=== PATIENT | female | born 2000 | race Caucasian/White ===

== ENCOUNTER 2021-09-16 13:15 | Outpatient (CLI) | payer MEDICAID, SELFPAY ==
--- NOTE | 2021-09-16 13:23 | US_ITS ---
STUDY: FIRST TRIMESTER OBSTETRICAL ULTRASOUND REASON FOR EXAM: Female, 21 years old viability LMP: 07/25/2021. TECHNIQUE: Transvaginal TECHNICAL QUALITY: Adequate. PRIOR ULTRASOUND: None. FINDINGS: There is visualization of a single gestational sac in a normal intrauterine position. The mean sac diameter (MSD) measures 2.4 cm, indicating an estimated gestational age (EGA) of 7 weeks, 2 days. The gestational sac shape is within normal limits. There is a visualized yolk sac. The yolk sac measures 3 mm. The placenta is non-visualized. There is visualization of a live embryo. The crown-rump length (CRL) measures 7 mm, indicating an estimated gestational age (EGA) of 6 weeks, 4 days. There is demonstrated cardiac activity with a heart rate of 119 bpm. The estimated gestation age (EGA) by LMP is 7 weeks, 4 days. The estimated date of delivery (KISHA) by LMP is 07/01/2022. The estimated gestation age (EGA) by US is 6 weeks, 4 days. The estimated date of delivery (KISHA) by US is 05/06/2022. The uterus measures 8.6 cm x 6.1 cm x 6.4 cm. There is evidence of a 2.8 cm x 2.3 cm x 1.7 cm subchorionic hematoma. There is no demonstrated uterine fibroid. The cervix is closed. The right ovary measures 2.6 cm x 1.6 x 1.5 cm. There is no right ovarian cyst. There is no visualized right adnexal mass or complex lesion. The left ovary measures 3.6 cm x 2.9 cm x 2.6 cm. There is a 1.8 cm x 1.9cm x 1.6 cm follicle in the left ovary. There is no visualized left adnexal mass or complex lesion. There is no fluid in the cul de sac. US/Transvaginal w/Preg US IMPRESSION: Single live intrauterine gestation with mean gestational age of 6 weeks and 4 days. There is evidence of a subchorionic hematoma. Electronically Signed: Leon Carpio MD at 14:40 EST ,
== END 2021-09-16 23:59 | disposition short-term general hospital (02) ==
LOC: OPUS 13:21
PROVIDERS: Referring Provider Obstetrics & Gynecology; Visit Provider Obstetrics & Gynecology
DX: O09.90 Supervision of high risk pregnancy, unspecified, unspecified trimester (principal); Z3A.00 Weeks of gestation of pregnancy not specified; Z87.59 Personal history of other complications of pregnancy, childbirth and the puerperium
CPT/HCPCS: 76817

== ENCOUNTER 2021-09-28 13:06 | Outpatient (CLI) | payer MEDICAID, SELFPAY ==
[2021-09-30 00:06] LABS: Chlamydia By Nucleic Acid AMP Negative (Negative)
[2021-09-30 11:00] LABS: Gonococcus By Nucleic Acid AMP Negative (Negative)
[2021-10-06 14:12] LABS: HPV APTIMA, High Risk Positive (Negative)
[2021-10-06 14:13] LABS: HPV Reflexed? YES, CHARGE PATIENT
== END 2021-09-28 23:59 | disposition home or self-care (01) ==
LOC: LABSPEC 13:08
PROVIDERS: Visit Provider Obstetrics & Gynecology
DX: O09.90 Supervision of high risk pregnancy, unspecified, unspecified trimester (principal); Z3A.00 Weeks of gestation of pregnancy not specified; Z12.4 Encounter for screening for malignant neoplasm of cervix
CPT/HCPCS: 87491; 87591; 87624; 88175; G0145

== ENCOUNTER 2022-04-30 02:20 | Inpatient (IN) | payer MEDICAID, SELFPAY ==
[2022-04-30] VITALS (23 sets, daily range): BP systolic 108–137; BP diastolic 55–75; PULSE 70–114; RESP 16; TEMP 36.1–37; O2SAT 98–100; BMI 29.9
[2022-04-30 02:29] LABS: ROM Internal Control Test YES-OK TO RESULT pt. (Internal QC)
[2022-04-30 02:31] LABS: ROM Patient Test POSITIVE (Negative)
[2022-04-30 02:57] LABS: Amphetamine Urine VISTA NEGATIVE (<1000 ng/mL); Barbiturate Urine VISTA NEGATIVE (< 200 ng/mL); Benzodiazepine Urine VISTA NEGATIVE (< 200 ng/mL); Cocaine Urine VISTA NEGATIVE (< 300 ng/mL); Ecstacy Urine VISTA NEGATIVE (< 500 ng/mL); Methadone Urine VISTA NEGATIVE (< 300 ng/mL); PCP Urine VISTA NEGATIVE (< 25 ng/mL); THC Urine VISTA NEGATIVE (< 50 ng/mL); Vista UDS pH Range 7
[2022-04-30 03:06] LABS: Color, Urine Yellow (Yellow); Glucose, Dipstick Normal (Normal); Ketone-Dipstick 5 mg/dl (Negative); Leukocyte Esterase-Dipstick 25 /ul (Negative); Nitrite-Dipstick Negative (Negative); Occult Blood-Urine 25 /ul (Negative); Protein-Dipstick 30 mg/dl (Negative); Urine Clarity Clear (Clear); Urine Urobilinogen 4 mg/dl (Normal)
[2022-04-30 03:13] LABS: Absolute Lymphocyte Count 2.23 X10^3/uL (0.83-4.51); Absolute Neutrophil Count 5.9 X10^3/uL (2.0-7.7); Basophil# 0.02 X10^3/uL; Basophil% 0.2 % (0-1); Eosinophil# 0.17 X10^3/uL; Eosinophils% 1.9 % (0-5); Hemoglobin 11.3 g/dL (12.0-15.0); Lymphocyte # 2.23 X10^3/ul (0.83-4.51); Lymphocyte % 25.1 % (19-41); Mean Corp Hgb Conc 33.2 g/dL (32-36); Mean Corpuscular Hgb 28.3 pg (27.0-32.0); Mean Corpuscular Volume 85.2 fL (81-99); Mean Platelet Vol. 11.9 fl (6.2-12.0); Monocyte# 0.55 X10^3/uL; Monocyte% 6.2 % (0-10); NRBC Flagged by Analyzer 0 % (0-5); Neutrophil # 5.88 X10^3/uL (2.7-7.7); Neutrophil % 66.2 % (47-70); Platelet Count 262 K/mm3 (150-450); RBC Distribution Width CV 13.2 % (11.6-14.6); RBC Distribution Width SD 41.1 fl (35.1-43.9); Red Blood Count 3.99 M/mm3 (4.2-5.4); White Blood Count 8.9 K/mm3 (4.4-11.0)
[2022-04-30 03:17] LABS: Urine Bilirubin Dipstick 1 mg/dL (Negative)
[2022-04-30 03:19] LABS: Bacteria 2+ /hpf (None Seen); Red Blood Cells-Urine 0-5 SEEN /hpf (0-5); Squamous Epithelial Cells - UA 0-5 SEEN /hpf (5-10); Transitional Epithelial - Ur 0-5 SEEN /hpf (0-5); White Blood Cells 0-5 SEEN /hpf (0-5)
[2022-04-30 03:20] LABS: Mucous, Urine 1+ /hpf (<or=2+)
--- NOTE | 2022-04-30 03:33 | HP.PCM.OB_ITS ---
HPI - General General Date of Admission: 04/30/22 HPI Narrative WESLEY BENJAMIN, is a 22 F who presentswith clear SROM and regualr ctx 4 cm dilated. she had one visit here and then moved to [place] and then came back, has been seeing a doctor in [place] but presented to this unit tonight in labor. Maternal Data Information KISHA Calculator Estimated Delivery Date Method Current WG Current Estimate 05/08/22 Ultrasound #1 38w 6d Other Estimates 05/01/22 LMP (Certain) 39w 6d PFSH PFSH Medical History (Updated 04/30/22 @ 03:[address] Julia Sauer MD) ASCUS with positive high risk HPV History of ectopic Medical History no medical history Allergy/AdvReac Type Severity Reaction Status Date / Time No Known Allergies Allergy Verified 04/30/22 03:13 Family History Mother Cancer ovarian cancer. mom Surgical History H/O unilateral salpingectomy Social History adopted: No household members: significant other pets and animals: Yes pets and animals: cat(s) Smoking Status: Never smoker alcohol intake: current alcohol intake frequency: holidays/special occasions only substance use type: does not use caffeine: Yes (minimal) additional social history: Works at [employer] History 6 Elective abortions Hx Para 0 Spontaneous abortions 4 Hx # Term Pregnancies Ectopic pregnancies 1 Hx # Pregnancies Multiple births # of living children Past Pregnancies Del. Date Name GA/Weeks Outcome Route Bth Weight Infant Gen Labor Lgth Anesthesia Del Locatn Provider FOB Unknown spontaneous 12/20/19 spontaneous 04/21/20 ectopic Visit Details Expected Delivery Route/Plan Labor Preferences- CB/BF classes: [] labor support person: [] labor intervention preferences: [] pain management options preferred: [] cut cord/dad catch: [] : [] PP control planned: [] discussed possible routes of delivery and associated risks: [] special requests: [] Plans Covid status: unvaccinated Flu vaccine: unvaccinated Tdap vaccine: [] Rhogam: [] LARC form signed: [] Problem list reviewed and updated with the most current plan of care details and appropriate orders placed. Relevant counseling for the gestational age provided. Continue routine care and follow up unless otherwise noted in visit notes/problem list details OB Flowsheet Initial Weight: Not Recorded Date -?-?-?-?-?-?-?-?-?-?-?-?- EGA Weight BP Urine Prot -?-?-?-?-?-?-?-?-?-?-?-?- Glucose FHR FuHt Pres Dilation -?-?-?-?-?-?-?-?-?-?-?-?- Effaced St Visit Note 09/16/21 -?-?-?-?-?-?-?-?--?-?-?-?- 6w 4d 130 lb 110/72 -?-?-?-?-?-?-?-?-?-?-?-?- -?-?-?-?-?-?-?-?-?-?-?-?- JV- CRL today (f ormal scan with radiology) shows 6 week 4d IUP with a heart beat. pt states this is the first (6 total) that she has seen the heart beat. 09/28/21 -?-?-?-?-?-?-?-?-?-?-?-?- 8w 2d 130 lb 8 oz 138/80 -?-?-?-?-?-?-?-?-?-?-?-?- -?-?-?-?-?-?-?-?-?-?-?-?- JV- cm subchorio marcelo hemorrhage noted on exam today. Will bring back in 2 weeks for close follow up. 04/30/22 -?-?-?-?-?-?-?-?-?-?-?-?- 38w 6d 174 lb 9.698 oz 115/ 74 132/73 30 mg/dl (Negative) H -?-?-?-?-?-?-?-?-?-?-?-?- -?-?-?-?-?-?-?-?-?-?-?-?- NST FHR Rate Baby A Baseline: 140 Variability:: Moderate Accelerations:: 15 x 15 Decelerations:: None NST Reactive:: Yes FHR Category:: Category I Uterine Activity:: q3-5 ROS Constitutional Constitutional: Reports systems reviewed and no addt'l complaints, except as documented ENT HEENT: Reports systems reviewed and no addt'l complaints, except as documented Cardiovascular Cardiovascular: Reports systems reviewed and no addt'l complaints, except as documented Respiratory/Chest Respiratory/Chest: Reports systems reviewed and no addt'l complaints, except as documented Gastrointestinal Gastrointestinal: Reports systems reviewed and no addt'l complaints, except as documented and nausea; Denies abdominal pain Genitourinary Genitourinary: Reports systems reviewed and no addt'l complaints, except as documented, contractions Details: present and frequency (regular ) and movement Details: present Musculoskeletal Musculoskeletal: Reports systems reviewed and no addt'l complaints, except as documented Integumentary Integumentary: Reports as per HPI Neurologic Neurologic: Reports systems reviewed and no addt'l complaints, except as documented Endocrine Endocrinology: Reports systems reviewed and no addt'l complaints, except as documented Vital Signs Vital Signs Vital Signs: 04/30/22 01:53 04/30/22 01:53 04/30/22 01:53 Temperature Temperature Source Pulse Rate 101 H Blood Pressure 115/74 BP Systolic 115 BP Diastolic 74 Pulse Ox 99 04/30/22 03:27 04/30/22 03:27 04/30/22 03:26 Temperature Temperature Source Pulse Rate 89 Blood Pressure 132/73 H BP Systolic 132 BP Diastolic 73 Pulse Ox 100 04/30/22 03:28 04/30/22 03:28 04/30/22 03:28 Temperature 97.4 F L Temperature Source Temporal Pulse Rate Blood Pressure BP Systolic BP Diastolic Pulse Ox 99 Weight Weight: 174 lb 9.698 oz Body Mass Index (BMI) 29.9 Physical Exam Const alert, oriented x3 and healthy appearing Constitutional Narrative: uncomfortable with contractions HEENT normocephalic and moist oral mucous membranes Head and Scalp: atraumatic Neck full ROM, no lymphadenopathy, supple and thyroid normal General: trachea midline Thyroid: thyroid normal Lymph Lymphatic: no lymphadenopathy noted Chest inspection of chest normal Resp normal respiratory effort Cardio regular rate GI normal to inspection, nondistended, normoactive bowel sounds, soft to palpation and non-tender Inspection: gravid external exam normal Bimanual Exam - Vag & Uterus: uterus non-tender Manual OB Exam: estimated gestational size appropriate, presentation cephalic, dilated, effaced and station Extremity normal to inspection General Extremity: Negative for edema Skin no rashes or lesions noted Neuro deep tendon reflexes 2+ bilaterally Motor Exam: strength 5/5 throughout and clonus absent Psych mental status grossly normal Labs Labs Labs: Blood Type Pending Antibody Screen Pending Hct 34.0 % (37-47) L Hgb 11.3 g/dL (12.0-15.0) L Obstetrics US Syphilis Total Ab Pending Rubella IgG Antibody Pending Hep Bs Antigen Pending Chlamydia DNA (ADELA) Negative (Negative) Neisseria gonorrhoeae DNA (ADELA) Negative (Negative) HIV 1&2 Antibody Pending Group B Strep DNA Pending Assessment & Plan (1) Rh negative state in antepartum period: COMMENT: Rhogam given 09/14/21 at [facility] due to bleeding. (2) History of recurrent miscarriages: COMMENT: 2 documented but states there were 4. Lived in [place] APL panel pt is unable to afford vaginal progesterone. micronized progesterone (oral) ordered and discount drug card given. (3) Supervision of high risk , antepartum: COMMENT: Grav 4/0 KISHA 05/01/22 Fiance:Fabiano (4) : COMMENT: need to discuss genetic and carrier screen (5) History of ectopic : COMMENT: 2020 left salpingectomy lived in [place] (6) Maternal varicella, non-immune: COMMENT: unsure of status. Check with NOB labs (7) Family history of malignant neoplasm of ovary in first degree relative: COMMENT: Mother dec when patient was young child (8) ASCUS with positive high risk HPV: COMMENT: repeat pap in 1 year (9) SROM (spontaneous rupture of membranes): PLAN: Plan Patient presents IAL, plan expectant management for , pitocin PRN if needed. Pain management: declines epidural. GBS unknown treat based on risk factors, rapid gbs sent. Management of any complications: labs drawn and tox screen sent I have reviewed the [facility] and made any clinically relevant updates.
[2022-04-30] MEDS: LACTATED RINGERS 500 ML 999 ML IV ×2 (03:45→06:45)
[2022-04-30 05:36] LABS: HIV - WCH Non-Reactive (Nonreactive); Hepatitis B Surface Antigen Non-Reactive (Nonreactive); Hepatitis C Antibody Non-Reactive (Nonreactive)
[2022-04-30] MEDS: Lactated Ringers 1,000 ML 200 ML IV (06:00)
--- NOTE | 2022-04-30 08:46 | EX.PCM.OBRPT ---
Assessment & Plan (1) Rh negative state in antepartum period: COMMENT: Rhogam given 09/14/21 at [facility] due to bleeding. (2) History of recurrent miscarriages: COMMENT: 2 documented but states there were 4. Lived in [place] APL panel pt is unable to afford vaginal progesterone. micronized progesterone (oral) ordered and discount drug card given. (3) Supervision of high risk , antepartum: COMMENT: Grav 4/0 KISHA 05/01/22 Fiance:Fabiano (4) : COMMENT: need to discuss genetic and carrier screen (5) History of ectopic : COMMENT: 2019 left salpingectomy lived in [place] (6) Maternal varicella, non-immune: COMMENT: unsure of status. Check with NOB labs (7) Family history of malignant neoplasm of ovary in first degree relative: COMMENT: Mother dec when patient was young child (8) ASCUS with positive high risk HPV: COMMENT: repeat pap in 1 year (9) SROM (spontaneous rupture of membranes): (10) Vaginal delivery: COMMENT: SM IAL srom limited care 40 girl poncho Maternal Data Information KISHA Calculator Estimated Delivery Date Method Current WG Current Estimate 05/08/22 Ultrasound #1 38w 6d Other Estimates 05/01/22 LMP (Certain) 39w 6d Vaginal Delivery Operative Information Date of Procedure: 04/30/22 Pre-Operative Diagnosis: IAL Post-Operative Diagnosis: same Surgery / Procedure Performed: Spontaneous Vaginal Delivery Type of Anesthesia: None Special Medications: none Estimated Blood Loss: 200 Fluids Replaced: crystalloid Findings Description of Procedure: Patient began pushing and delivered the head in the REJI presentation. The head was delivered atraumatically . The anterior and posterior shoulders delivered without complication followed by the rest of the infant and the was placed on the maternal abdomen. Delayed cord clamping was employed for approximately 60 seconds. Cord was clamped and cut and gentle traction was applied to the cord and the placenta delivered spontaneously immediately following it was noted to be intact with three-vessel cord. The perineum and vagina were inspected and noted to have no laceration. EBL was 200. Patient and tolerated delivery well. Presentation: REJI Amniotic Membrane Rupture Type: Spontaneous Amniotic Fluid Description: Clear Placental Delivery Description: Spontaneous Placenta Disposition: [facility] Cord Vessel Description: 3 Vessels Cord Entanglement: None Cord Gases: ABG and VBG A Gender: Female Delayed Cord Clamping: Yes Post Vaginal Delivery Medications Given After Delivery: IV Pitocin Episiotomy Description: None Laceration: None Complication Complications: None Procedures Urinary/Genital [id number]: [id number] Vaginal Delivery+ Care([facility])
--- NOTE | 2022-04-30 09:11 | NURSING ---
Patient's adopted mother(Delmy Collado) and biological father approached this RN shortly after arriving. They voiced their concerns for the safety of the baby and the mothers inability to provide stable housing. She states that the mother is unable to understand simple cause and effect and that she has the mind of an 7 year old.Soha was diagnosed bipolar when she was a child. But currently denies being medicated. Delmy states she worries about her mental state and the possibility of Shaken Baby Syndrome. She is concerned Soha will go back to the [facility] when he is released from custodial over child pornography charges. Expressing that he is also a tier 2 sex offender. Delmy and Soha's father state they do not want him around their own children should she come to live with them. Her mother also reports that the friend she has been staying with for 2 weeks is a known drug user and that the patient has been moving in and out of state with little care.
[2022-04-30 09:22] LABS: Group B Strep DNA By PCR Negative (Negative)
[2022-04-30 09:23] LABS: Internal Control PASS; Probe Check PASS; Specimen Processing Control PASS
[2022-04-30] MEDS: Oxytocin 30 units/NS 500 ml 30 UNITS/500 ML IV.SOLN 334 UNITS IV (09:35)
--- NOTE | 2022-04-30 09:44 | DCINST_ITS ---
Discharge Instructions Diet Discharge Diet: No restrictions Activity Discharge Activity: Return to Normal Activity, May Drive, May Shower and May Take a Tub Bath (in 4 weeks) May resume sexual activity in: 6-8 weeks (after seen by OB provider) Weight Bearing Status: Full weight bearing Lifting Restrictions: none Dressing / Incision Call your doctor if you observe: Fever of 101 or Higher, Inability to urinate, Using more than 1 pad per hour (for more than 2 hours in a row or more), Shortness of breath, Dizziness, Chest pain and - (headache not controlled with tylenol, change in vision) Follow Up Care When: in 6 weeks for visit, call the office to make the appointment. If you had elevated blood pressures call the office to be seen within 1 week. Test Results: Test results from this visit will be discussed in further detail at your follow- up appointment, if applicable. Discharge Plan Admission Admit Date/Time: 04/30/22 02:20 Attending Provider: Julia Sauer Primary Care Provider: Care Physician,Farrah Primary Discharge Orders/Prescriptions Referrals / Follow Up: Care Physician,No Primary [Primary Care Provider] - Disposition Disposition (needs filled in before D/C Order can be placed): Home, Self Care
[2022-04-30 10:08] LABS: Chlamydia Trachomatis by PCR POSITIVE (Negative); Neisserai gonorrhoeae by PCR Negative (Negative); Probe Check PASS; Sample Adequacy Control PASS; Specimen Processing Control PASS
[2022-04-30] MEDS: Acetaminophen 500 MG Tablet 1000 MG PO ×2 (10:36→21:51)
[2022-04-30] MEDS: Azithromycin 250 MG Tablet 1000 MG PO (12:14)
--- NOTE | 2022-04-30 14:49 | NURSING ---
RN helping mother nurse babe. When this RN entered room, mother of pt appeared to be frustrated that the baby was not latching. Patient, herself, appeared calm. This RN assisted pt in latching babe. Pt responding well to instructions from RN and voices encouraging words to babe to latch. Pt yawned and mother of patient voiced are you getting frustrated? to pt. Pt responded and said she was just tired, pt attempting to not fall asleep while babe nursing. Pt told RN she has been up since 0800 on 04/29/22. This RN encouraged pt to take a nap once this feeding was complete. Pt agreeable. Pt appropriate and encouraged with this RN and babe.
--- NOTE | 2022-04-30 18:14 | CASEMGMT ---
Addendum entered by Karime Santillan 04/30/22 19:10: [place] Apgars 8/9. Renate called Kiana Cullen and paged contract paralegal for children services (DJ). SW received call from Bay Garcia at [facility]. SW related the issues and concerns to him. He will call and speak to the supervisor cell efficiency and then call this resume writer back. Karime Santillan CONTACT CENTER CONSULTANT HALIE Original Note: RENATE Note Referral Source: RN Yolanda and [place] Referral Reason: Yolanda said that the adoptive mom said that she has extreme concerns regarding the mob caring for the nb. Adoptive mom said that MOB does not know cause and affect and has the mental capacity of a 8 year old and feels she would shake a baby. CHER is a tier II sex offender getting out of penitentiary on July 18. Upon entering the room there was a male sleeping on the couch. MOB identified that as her dad and stated her step mom had left the room. MOB's father said that they drove from [place]. SW interviewed MOB alone. Mom: Soha PNC: [place] and then [place] which I thought would be permanent but it didn't work out so I came back to [place]. Patient said that she went to [facility] and then 2 weeks ago she came back to [place] Control: Not using. MOB was educated on patient can get during the post period. Baby: Ronit Penn (of note, the MOB had to go to her phone to get the spelling of CHER's last name) Weight: 7# 10 ounces Traffic Law Attorney: Undecided. MOB said that she will go to a market superintendent in [place] and will have one by the end of my stay. Breast feeding going good per MOB. This is MOB's first child. Housing: MOB is living with a friend, Karla Jeong (of note MOB had to look up spelling of Karla's last name) and [place] twins age 10 months. SW asked how MOB knew Sweetie and she said that Sweetie and Ronit's dad are good friends. Transportation: MOB reports that she does not drive but has access to transportation from Sweetie. Supplies: MOB reports she has a carseat and bassinet. MOB reports she has clothes and diapers. MOB said that she does not have a crib or pack n play because she got the bassinet first as she thought that was what she needed the most after nb was born. Supports: NICK said that Sweetie will do agood job at helping. MOB said that her parents came up and if I was in dire straights they would help. NICK said she is unsure when her parents will return to [place] but said it might be tomorrow. Education Level: NICK graduated high school. SW inquired about learning issues or IEP. NICK said that she did not have any special education classes or IEP but thought she had slightly learning issues. Employment: [employer] is not currently employed. NICK said that after I had Ronit and was rested I was planning on finding a job. 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 Agency Involvement: NICK reports she is on [employer]. MOB plans to enroll the nb on [employer]. MOB reports she plans to get food stamps. NICK was open to referral for WIC and [facility].NICK reports that she had counseling at age 17-18 and hasn't had it since. MOB reports no legal issues. MOB reports that when I was younger I had a CPS issues.. it was supposedly due to me but they came out one time and closed it FOB: Fabiano Time Together: FOB and MOB have been together for 1 year Involved at : Yes per MOB however, MOB reports that the FOB is currently in penitentiary at [facility] for a probation violation Employment: Currently in [employer] at [employer] until July 18. Other Children: None FOB MH/AOD/Domestic Violence: NICK denied Maternal MH History: NICK said when I was younger.. I didn't feel a need for counseling and therapy .. it was situational because at home there was discipline issues with others in the household and then my stepmom took action and got me in a psychiatrist and therapy. NICK said that she was diagnosed with bipolar at age 17-18. SW asked NICK about psych hospitalization and NICK said she was hospitalized as not because I needed it ... I was told I needed to go so to keep the peace I went and I was just there overnight. NICK denied any current psych medication and said that she has been off medication since age 17. MOB denied any current or past SI. SW asked patient what she would do if she was getting anxious or upset with the nb and patient said she would lay the nb down, and then chill and calm myself. SW asked about AOD use and MOB denied. SW asked about FOB AOD again and MOB said he drinks but occasionally and indicated it was not all the time SW educated patient on Shaken Baby and Post Depression. SW inquired as to how nb's sleep and patient said on their back. SW reiterated that nb's sleep on their back. SW provided MOB with handout on Post Depression and Community Resources. Plan: Due to concerns voiced by the adoptive parents who actually appear to be bio dad and step mom and that CHER is incarcerated in [place] and is a Tier 2 sexual offender and that MOB had to look up her friend Santo' last name and the fob's last name. RENATE also concerned about MOB's past diagnosis of Bipolar with no current medication or treatment. Thus, RENATE will make referral to [facility]. Karime AMBROSE
--- NOTE | 2022-04-30 19:23 | CM.ED ---
RENATE note SW received call back from [facility] worker, Bay Garcia. He advised to discharge the nb and patient as normal per the garment manufacturing supervisor web production manager. RENATE updated staff Zac Little RN and [employer] system. RENATE advised that if concerns arise tomorrow on Monday when clinical social work aide is not available to keep the nb till Monday. Karime AMBROSE
--- NOTE | 2022-04-30 19:35 | CASEMGMT ---
SW made referral to [facility] and [place] on line. Referral response received. Karime AMBROSE
[2022-05-01] VITALS (8 sets, daily range): BP systolic 105–117; BP diastolic 55–64; PULSE 59–88; RESP 16–22; TEMP 36.2–36.8; O2SAT 99–100
--- NOTE | 2022-05-01 06:41 | PN.OBGYN_ITS ---
Subjective Subjective Patient doing well without complaints. Tolerating PO. Ambulating and voiding without difficulty. infant feeding well. Denies chest pain, shortness of breath, calf pain/swelling, fevers, chills, lightheadedness. Objective Data Objective Data Vital Signs: Vital Signs Temp Pulse Resp BP Pulse Ox O2 Del Method 97.5 F L 77 16 117/57 L 100 Room Air 05/01/22 04:03 05/01/22 04:09 05/01/22 04:03 05/01/22 04:09 05/01/22 04:03 05/01/22 04:03 Oxygen Delivery Method Room Air Weight: 174 lb 9.698 oz Body Mass Index (BMI) 29.9 Intake & Output: Intake and Output for Last 24 Hours 04/29/22 04/30/22 05/01/22 23:59 23:59 23:59 Intake Total 2216.67 / 2216.67 Output Total 300 / 300 Balance 1916.67 / 1916.67 Lab / Micro Data Result Diagrams: 04/30/22 02:45 Labs: Laboratory Results - last 24 hr 04/30/22 02:15: Group B Strep DNA Cancelled, Specimen Comment Cancelled 04/30/22 04:40: Chlam trachomat DNA PCR POSITIVE H, N.gonorrhoeae DNA (PCR) Negative, Group B Strep DNA Negative, Specimen Comment Not Reportable Micro: Microbiology 04/30/22 02:52 Nasal Secretion SARS-CoV-2 Antigen (Rapid) - Final ROS Constitutional Constitutional: Reports systems reviewed and no addt'l complaints, except as documented Cardiovascular Cardiovascular: Reports systems reviewed and no addt'l complaints, except as documented Respiratory/Chest Respiratory/Chest: Reports systems reviewed and no addt'l complaints, except as documented Gastrointestinal Gastrointestinal: Reports systems reviewed and no addt'l complaints, except as documented Physical Exam Const alert, oriented x3 and no apparent distress HEENT Head and Scalp: atraumatic Resp normal respiratory effort GI soft to palpation and non-tender Bimanual Exam - Vag & Uterus: uterus non-tender Uterus Palpation: uterus fundus firm (below Umbilicus) Assessment & Plan (1) Vaginal delivery: COMMENT: SM IAL srom limited care 40 girl poncho (2) Rh negative state in antepartum period: COMMENT: Rhogam given 09/14/21 at [facility] due to bleeding.
[2022-05-01] MEDS: Naproxen 500 MG Tablet PO (08:35)
[2022-05-02 08:56] LABS: Rubella IgG Reactive (Nonreactive); Syphilis Antibodies Non-reactive
--- NOTE | 2022-05-02 15:14 | CM.ED ---
RENATE faxed referral to [place] [facility]. Confirmation received. RENATE called [facility] in [place] and spoke to Christy. Updated her concerns regarding the patient as well as mom declined hep B. RENATE reviewed concerns of bipolar no meds, FOB Tier 2 sex offender and sporadic PNC. RENATE advised that RENATE made referral to [facility] [place] program. Christy was also advised that mom refused hep b. Christy said that she will document it. THe case has been screened out. RENATE voiced that this database report writer has concerns for the nb. Karime AMBROSE
== END 2022-05-01 16:25 | disposition home or self-care (01) | DRG 560 ==
LOC: WPOUT 02:22 → WP 02:22
PROVIDERS: Admitting Provider Obstetrics & Gynecology; Visit Provider Obstetrics & Gynecology
DX: O80 Encounter for full-term uncomplicated delivery (principal); Z37.0 Single live birth; Z28.310 Unvaccinated for COVID-19; Z3A.38 38 weeks gestation of pregnancy
CPT/HCPCS: 59025; 59050; 80307; 81001; 84112; 85025; 86703; 86762; 86780; 86803; 86850; 86900; 86901; 87081; 87340; 87426; 87491; 87591; 87653; 99218; J7120; G0378